=== PATIENT | female | born 1940 | race Caucasian/White ===

== ENCOUNTER 2017-07-28 13:05 | Emergency (ER) | payer OTHER, BC ==
[~2017-07-28] VITALS: Ht 152.4 cm; Wt 80.0 kg
[~2017-07-28 13:05] MED LIST: AVENTYL,PAMELOR25 MG PO; BYSTOLIC20 MG PO; BYSTOLIC5 MG PO; Buspar PO; Bystolic PO; CINNAMON500 MG PO; DAILY VITE1 EAC1 PO; DEPLIN PO; Desyrel PO; ELAVIL10 MG PO; Ecotrin PO; Elavil PO; FISH OIL 1,0001 EAC7 PO; FLONASE16 G1 BOTH NARES; FLORASTOR250 MG PO; Feosol PO; Flonase BOTH NARES; HYDROCHLOROTH12.5 M3 PO; LO-DOSE ASPIRIN81 M1 PO; LOSARTAN POTASS50 MG PO; MELOXICAM7.5 MG PO; METAXALONE800 MG PO; NORTRIPTYLINE H10 MG PO; NORTRIPTYLINE H25 MG PO; NORVASC10 MG PO; PROAIR HFA8.5 GM IH; PROBIOTIC1 EAC1 PO; PROTONIX40 MG PO; PROVENTIL,2.5 MG/3 M IH; Protonix PO; Proventil,Ventolin H IH; SINGULAIR10 MG PO; Singulair PO; TRAMADOL HCL50 MG PO; TRAZODONE HCL50 MG PO; VITAMIN D31000 UNI2 PO; Vicodin,Norco 5/325 PO; XANAX0.25 MG PO; Xanax PO; [UNRECOGNIZED DRUG - OTHER] PO
[2017-07-28 13:31] LABS: EOSINOPHIL (%) 1.2 % (0-5); EOSINOPHIL COUNT 0.1 K/uL (0-0.3); HEMATOCRIT 40.5 % (36.0-46.0); IMMATURE GRANULOCYTE (%) 0.2 % (0.0-0.7); LYMPHOCYTE COUNT 1.7 K/uL (1.0-2.8); MCH 30.2 PG (29.0-34.0); MCHC 33.6 G/DL (30.0-36.0); MEAN PLAT.VOLUME 9.7 uM^3 (9.5-12.4); MONOCYTE COUNT 0.4 K/uL (0-0.8); NEUTROPHIL (%) 46.9 % (45-76); PLATELET COUNT 163 K/uL (156-360); RBC DIS.WIDTH-CV 11.8 % (11.8-14.6); RBC DIS.WIDTH-SD 38.5 % (39-53); WHITE BLOOD COUNT 4.2 K/uL (4.1-10.2)
[2017-07-28 13:41] LABS: CHLORIDE 106 mEq/L (99-109); POTASSIUM 3.6 mEq/L (3.7-5.4); SODIUM 139 mEq/L (136-147)
[2017-07-28 13:43] LABS: GLUCOSE 87 mg/dL (70-99)
[2017-07-28 13:44] LABS: ANION GAP 6 MEQ/L (2-14)
[2017-07-28 13:47] LABS: GFR ESTIMATE (CALCULATED) 57 mL/min/; UREA NITROGEN (BUN) 17 mg/dL (9-23)
[2017-07-28 14:48] LABS: ADD MIUA? NO; BILIRUBIN NEGATIVE; BLOOD NEGATIVE; COLOR STRAW ((YELLOW)); GLUCOSE (STRIP) NEGATIVE; KETONES NEGATIVE; LEUKOCYTES NEGATIVE; NITRITE NEGATIVE; PROTEIN (STRIP) NEGATIVE; SPECIFIC GRAVITY 1.005 (1.000-1.030); UCUL ADDED? NO; UROBILINOGEN 0.2 MG/DL (0.2-1.0)
[2017-07-28] MEDS ORDERED: ATIVAN0.5 MG PO (16:13)
[2017-07-28 16:28] VITALS: BP 214/102
== END 2017-07-28 16:33 | disposition home or self-care (01) ==
LOC: EME 13:05
PROVIDERS: Emergency Medicine
DX: F43.9 Reaction to severe stress, unspecified (principal); F41.1 Generalized anxiety disorder; M79.7 Fibromyalgia; K21.9 Gastro-esophageal reflux disease without esophagitis; J44.9 Chronic obstructive pulmonary disease, unspecified; I10 Essential (primary) hypertension; F32.9 Major depressive disorder, single episode, unspecified; Z79.82 Long term (current) use of aspirin
CPT/HCPCS: 80048; 81003; 85025; 93005; 99281; 99285